=== PATIENT | female | born 1950 ===

== ENCOUNTER 2022-02-13 10:30 | Inpatient (IN) | payer OTHER ==
[~2022-02-13] VITALS: Ht 160 cm; Wt 86.2 kg
[2022-02-13] MEDS ORDERED: COZAAR100 MG PO (14:09)
[2022-02-13] MEDS ORDERED: SYNTHROID75 MCG PO (14:09)
[2022-02-16] MEDS ORDERED: ATORVASTATIN CA20 MG (13:07)
[2022-02-16] MEDS ORDERED: GABAPENTIN300 M2 (13:07)
[2022-02-16] MEDS ORDERED: AMLODIPINE BESYL5 MG (13:07)
[2022-02-16] MEDS ORDERED: SERTRALINE HCL50 MG (13:07)
[2022-02-16] MEDS ORDERED: GLIPIZIDE5 MG (13:07)
[2022-02-16] MEDS ORDERED: BISACODYL5 MG (13:07)
[2022-02-16] MEDS ORDERED: DICLOFENAC POTA50 MG (13:08)
[2022-02-16] MEDS ORDERED: MAXIMUM D3325 MCG (13:08)
[2022-02-16] MEDS ORDERED: LOSARTAN-HCTZ1 EAC2 (13:08)
[2022-02-16] MEDS ORDERED: ST. JOSEPH ASPI81 M2 (13:08)
[2022-02-16] MEDS ORDERED: JANUMET 50-1,01 EACH (13:08)
[2022-02-20] MEDS ORDERED: ULTRACET PO (08:34)
[2022-02-20] MEDS ORDERED: INTESTINEX680 M1 PO (08:34)
[2022-02-20] MEDS ORDERED: HYOSCYAMINE0.125 M1 SL (08:35)
== END 2022-02-20 17:45 | disposition home or self-care (01) | DRG 331 ==
LOC: EDUNIT# 10:30 → O/R 02-16 07:17 → SURG 02-16 07:17
PROVIDERS: ADMIT Surgery; ATTEND Surgery
PROC: 07BC4ZZ Excision of Pelvis Lymphatic, Percutaneous Endoscopic Approach (ICD-10-PCS; 2022-02-16)
PROC: 0DTF4ZZ Resection of Right Large Intestine, Percutaneous Endoscopic Approach (ICD-10-PCS; principal; 2022-02-16 10:00)
DX: C18.4 Malignant neoplasm of transverse colon (principal); D12.2 Benign neoplasm of ascending colon; R19.4 Change in bowel habit

== ENCOUNTER 2022-02-13 11:59 | Outpatient (CLI) | payer OTHER ==
[2022-02-13] MEDS ORDERED: SYNTHROID75 MCG PO (14:09)
[2022-02-13] MEDS ORDERED: COZAAR100 MG PO (14:09)
== END 2022-02-13 14:27 | disposition home or self-care (01) ==
LOC: LAB 11:59
PROVIDERS: ATTEND Surgery
DX: D37.4 Neoplasm of uncertain behavior of colon (principal); R19.4 Change in bowel habit; D12.2 Benign neoplasm of ascending colon; D68.8 Other specified coagulation defects